=== PATIENT | male | born 1985 | race Asian ===

== ENCOUNTER 2021-01-15 06:50 | Emergency (ER) | payer MEDICAID ==
[~2021-01-15] VITALS: Ht 167.6 cm; Wt 68.0 kg
--- NOTE | 2021-01-15 07:00 | NUR ---
MD MABRY in room to do MSE.
--- NOTE | 2021-01-15 07:52 | NUR ---
Patient discharged to home in stable condition. Written and verbal after care instructions given. Patient verbalizes understanding of instructions. Stressed follow up or return to ER for worsening s/s.
== END 2021-01-15 07:53 | disposition home or self-care (01) ==
LOC: ER 07:01
DX: B34.9 Viral infection, unspecified (principal); R05 Cough; J02.9 Acute pharyngitis, unspecified; R51.9 Headache, unspecified; Z20.822 Contact with and (suspected) exposure to COVID-19
CPT/HCPCS: A4663